=== PATIENT | male | born 1995 | race American Indian/Alaskan Native ===

== ENCOUNTER 2017-12-05 07:42 | Emergency (ER) | payer SELFPAY ==
[2017-12-05 08:00] VITALS: BP 128/88
[2017-12-05] MEDS ORDERED: NORCO 5/325 PO ONE (08:52)
[2017-12-05] MEDS ORDERED: BICILLIN L-A IM ONE (08:52)
--- NOTE | 2017-12-05 08:53 | Emergency Department Report ---
ED ENT HPI - General Chief complaint: Dental/Oral Stated complaint: TOOTH ACHE Time Seen by Provider: 12/05/17 08:32 Source: patient Mode of arrival: Ambulatory Limitations: No Limitations - History of Present Illness Initial comments: This is a 22-year-old -Stateless male who presents with left side facial swelling and tooth pain for 3 days. He is unemployed and does not have dental insurance to follow up with the dentist. Patient states he woke up 3 days ago with left side facial swelling and severe pain to the left lower side. Patient states he has been having issues with tooth on the left lower side since 12th grade but did not have insurance to have the tooth repaired. Patient reports pain is 10 out of 10 on pain scale and worse with eating. Patient states this morning when pain was unbearable so he decided to come in for evaluation. Patient denies sore throat, fever, nausea or vomiting, tongue swelling, drooling , and chest pain. MD complaint: tooth pain Onset/Timin -: days(s) Location: tooth # (30) Severity: severe Severity scale (0 -10): 10 Quality: stabbing, constant, other (throbbing) Consistency: constant Improves with: none Worsens with: eating Context- Dental: history of dental caries, poor dental care Associated Symptoms: fever, gum swelling, toothache - Related Data Previous Rx's Medication Instructions Recorded Last Taken Type Clindamycin [Clindamycin CAP] 300 mg PO Q8H #21 cap 12/05/17 Unknown Rx Naproxen [Naprosyn] 500 mg PO BID #20 tablet 12/05/17 Unknown Rx traMADol [Ultram 50 MG tab] 50 mg PO Q6HR PRN #12 tablet 12/05/17 Unknown Rx Allergies Allergy/AdvReac Type Severity Reaction Status Date / Time No Known Allergies Allergy Unverified 12/05/17 07:58 ED Dental HPI - General Chief complaint: Dental/Oral Stated complaint: TOOTH ACHE Time Seen by Provider: 12/05/17 08:32 Source: patient Mode of arrival: Ambulatory Limitations: No Limitations - Related Data Previous Rx's Medication Instructions Recorded Last Taken Type Clindamycin [Clindamycin CAP] 300 mg PO Q8H #21 cap 12/05/17 Unknown Rx Naproxen [Naprosyn] 500 mg PO BID #20 tablet 12/05/17 Unknown Rx traMADol [Ultram 50 MG tab] 50 mg PO Q6HR PRN #12 tablet 12/05/17 Unknown Rx Allergies Allergy/AdvReac Type Severity Reaction Status Date / Time No Known Allergies Allergy Unverified 12/05/17 07:58 ED Review of Systems ROS: Stated complaint: TOOTH ACHE Other details as noted in HPI Constitutional: denies: chills, fever ENT: dental pain, other (left sided facial swelling). denies: ear pain, throat pain, hearing loss, epistaxis, congestion Respiratory: denies: cough, shortness of breath, wheezing Cardiovascular: denies: chest pain, palpitations Gastrointestinal: denies: abdominal pain, nausea, diarrhea Neurological: denies: headache, weakness, numbness, paresthesias Psychiatric: denies: anxiety, depression ED Past Medical Hx - Past Medical History Previous Medical History?: No - Surgical History Hx Appendectomy: No - Social History Smoking Status: Never Smoker Substance Use Type: Alcohol, Marijuana - Medications Home Medications: Home Medications Medication Instructions Recorded Confirmed Last Taken Type Clindamycin [Clindamycin CAP] 300 mg PO Q8H #21 cap 12/05/17 Unknown Rx Naproxen [Naprosyn] 500 mg PO BID #20 tablet 12/05/17 Unknown Rx traMADol [Ultram 50 MG tab] 50 mg PO Q6HR PRN #12 tablet 12/05/17 Unknown Rx ED Physical Exam - General Limitations: No Limitations General appearance: alert, in no apparent distress - ENT ENT exam: Present: mucous membranes moist, other (dental caries at #30, tenderness, surrounding mucosal swelling) - Cardiovascular Cardiovascular Exam: Present: regular rate, normal rhythm. Absent: systolic murmur, diastolic murmur, rubs, gallop - GI/Abdominal GI/Abdominal exam: Present: soft, normal bowel sounds - Neurological Exam Neurological exam: Present: alert, oriented X3 - Psychiatric Psychiatric exam: Present: normal affect, normal mood - Skin Skin exam: Present: warm, dry, intact, normal color, other (facial swelling on left side). Absent: rash ED Course Vital Signs 12/05/17 07:58 Temperature 99.0 F Pulse Rate 85 Respiratory 16 Rate Blood Pressure 128/88 O2 Sat by Pulse 100 Oximetry ED Medical Decision Making - Medical Decision Making This is a 22-year-old male that presents with toothache and left side facial swelling for 3 days. Patient is stable and was examined by me. Given norco and Bicillin once in ER. Susceptible of dental caries. Discussed plan with patient. She agreed with ER plan. Discharged home with clindamycin, naproxen, and tramadol. Follow up with dentist and referral to [facility]. Critical care attestation.: If time is entered above; I have spent that time in minutes in the direct care of this critically ill patient, excluding procedure time. ED Disposition Clinical Impression: Toothache, Dental caries Disposition: TO HOME OR SELFCARE Is pt being admited?: No Does the pt Need Aspirin: No Condition: Stable Instructions: Dental Caries (ED), Toothache (ED) Additional Instructions: Complete all days of clindamycin as prescribed for 14 days. Take naproxen or trauma done every 6 hours as needed for pain. Follow up with Dentist in 24-72 hours. Prescriptions: Clindamycin [Clindamycin CAP] 300 mg PO Q8H #21 cap Naproxen [Naprosyn] 500 mg PO BID #20 tablet traMADol [Ultram 50 MG tab] 50 mg PO Q6HR PRN #12 tablet PRN Reason: Pain Referrals: [facility] [Outside] - 3-5 Days [facility] [Outside] - 3-5 Days [facility] [Outside] - 3-5 Days [facility] [Outside] - 3-5 Days [facility] [Outside] - 3-5 Days Time of Disposition: 09:21 Print Language: LEBANESE
== END 2017-12-05 09:53 | disposition home or self-care (01) ==
LOC: ED 07:42
DX: K02.9 Dental caries, unspecified (principal); F12.90 Cannabis use, unspecified, uncomplicated; Z79.899 Other long term (current) drug therapy
CPT/HCPCS: 96372; 99282; J0561